=== PATIENT | female | born 1990 | race Caucasian/White ===

== ENCOUNTER 2019-07-02 15:39 | Emergency (ER) | payer SELFPAY ==
[~2019-07-02] VITALS: Ht 175 cm; Wt 90.1 kg
--- NOTE | 2019-07-02 16:35 | NUR ---
PT IS IN FAMILY ROOM UNTIL ROOM 8 IS CLEANED.
--- NOTE | 2019-07-02 16:45 | NUR ---
Assumed care of pt @ this time. Pt amb from family room to room #8. Pt reports suicidal ideation r/t situational crisis. Pt reports to be staying @ the [facility] ([place], [place]). Pt reports to have had mental health evaluation ( Mental Health Screener) @ [facility] on this day @ approx 1100. Pt reports screener (Ambika) reports she has an inpatient bed @ [facility] ([place], [place]) but needed to be medically screened in ED.
--- NOTE | 2019-07-02 16:50 | NUR ---
Pt makes verbal commitment to this RN, while in this ED, to not self harm, or attempt to self harm herself in anyway.
--- NOTE | 2019-07-02 16:51 | ED Psychosocial ---
General Chief Complaint: Psych/Social Disorder Stated Complaint: MENTAL HEALTH ISSUES Nursing Triage Note: STATES SHE HAS BEEN HAVING SUICIDAL THOUGHTS. HAD AN ASSESSMENT DONE THIS AM AND THERE IS A OPEN BED IN [facility] SHE JUST NEEDS MEDICALLY CLEARED. STATES SHE HAS A PLAN BUT NO PLANS TO ACT ON IT AT THIS MOMENT AND WILL NOT DISCUSS THE PLAN. Source: patient Exam Limitations: no limitations (CHRISTINA FABIAN APRN) History of Present Illness Date Seen by Provider: Jul 02, 2019 Time Seen by Provider: 16:48 Initial Comments To ER per private vehicle with reports of worsening depression to the point of now having suicidal thoughts. She has a plan but doesn't want to discuss that. [facility] [place] and had a mental health evaluation done there this morning, was apparently determined that she needed inpatient treatment and that [facility] in [facility] a bed available. She was told to come here for medical clearance. She was recently inpatient at [facility] in [place] about 3 months ago, she was then admitted to addiction treatment Center in [facility] for prescription drug use mostly Adderall and "anything and everything". History of bipolar disorder. She is currently on Rexulti and Cymbalta. Timing/Duration: constant, getting worse Severity: moderate (CHRISTINA FABIAN APRN) Allergies and Home Medications Allergies Coded Allergies: No Known Drug Allergies (Unverified , 07/02/19) Patient Home Medication List Home Medication List Reviewed: Yes (CHRISTINA FABIAN APRN) Review of Systems Constitutional: see HPI EENTM: see HPI Respiratory: no symptoms reported Cardiovascular: no symptoms reported Genitourinary: no symptoms reported Musculoskeletal: no symptoms reported Psychiatric/Neurological: See HPI (CHRISTINA FABIAN APRN) Past Vtwbteq-Hemxpw-Enweep Hx Patient Social History Recent Foreign Travel: No Contact w/Someone Who Travel: No Recent Infectious Disease Expo: No (CHRISTINA FABIAN APRN) Past Medical History : No Last Menstrual Period: Jun 25, 2019 (CHRISTINA FABIAN APRN) Physical Exam Vital Signs - First Documented 07/02/19 16:32 Temp 36.7 Pulse 66 Resp 16 B/P (MAP) 143/88 (106) Pulse Ox 98 O2 Delivery Room Air (VIVIANA HURT MD) Capillary Refill : Less Than 3 Seconds (CHRISTINA FABIAN APRN) Height, Weight, BMI Height: '" Weight: lbs. oz. kg; 29.00 BMI Method: General Appearance: WD/WN, no apparent distress HEENT: PERRL/EOMI, normal ENT inspection Neck: non-tender, full range of motion Respiratory: no respiratory distress, no accessory muscle use Gastrointestinal: normal bowel sounds, non tender, soft Neurologic/Psychiatric: normal mood/affect, oriented x 3 Appearance/Memory: appropriate appearance, appropriate insight, neat Behavior/Eye Contact: cooperative, good eye contact Thoughts/Hallucinations: normal thought pattern, no apparent hallucination; No auditory hallucinations, No delusions, No flight of ideas Skin: normal color, warm/dry (CHRISTINA FABIAN APRN) Progress/Results/Core Measures Results/Orders Lab Results Laboratory Tests Test 07/02/19 17:40 07/02/19 17:45 Range/Units White Blood Count 10.3 4.3-11.0 10^3/uL Red Blood Count 4.73 4.35-5.85 10^6/uL Hemoglobin 14.4 11.5-16.0 G/DL Hematocrit 43 35-52 % Mean Corpuscular Volume 90 80-99 FL Mean Corpuscular Hemoglobin 30 25-34 PG Mean Corpuscular Hemoglobin Concent 34 32-36 G/DL Red Cell Distribution Width 13.4 10.0-14.5 % Platelet Count 246 130-400 10^3/uL Mean Platelet Volume 9.6 7.4-10.4 FL Neutrophils (%) (Auto) 69 42-75 % Lymphocytes (%) (Auto) 23 12-44 % Monocytes (%) (Auto) 7 0-12 % Eosinophils (%) (Auto) 1 0-10 % Basophils (%) (Auto) 0 0-10 % Neutrophils # (Auto) 7.1 1.8-7.8 X 10^3 Lymphocytes # (Auto) 2.3 1.0-4.0 X 10^3 Monocytes # (Auto) 0.7 0.0-1.0 X 10^3 Eosinophils # (Auto) 0.1 0.0-0.3 10^3/uL Basophils # (Auto) 0.0 0.0-0.1 10^3/uL Sodium Level 142 135-145 MMOL/L Potassium Level 4.3 3.6-5.0 MMOL/L Chloride Level 110 H 98-107 MMOL/L Carbon Dioxide Level 22 21-32 MMOL/L Anion Gap 10 5-14 MMOL/L Blood Urea Nitrogen 13 7-18 MG/DL Creatinine 0.83 0.60-1.30 MG/DL Estimat Glomerular Filtration Rate > 60 BUN/Creatinine Ratio 16 Glucose Level 76 70-105 MG/DL Calcium Level 8.6 8.5-10.1 MG/DL Corrected Calcium 8.8 8.5-10.1 MG/DL Total Bilirubin 0.3 0.1-1.0 MG/DL Aspartate Amino Transf (AST/SGOT) 17 5-34 U/L Alanine Aminotransferase (ALT/SGPT) 24 0-55 U/L Alkaline Phosphatase 52 40-136 U/L Total Protein 6.0 L 6.4-8.2 GM/DL Albumin 3.8 3.2-4.5 GM/DL Salicylates Level < 5.0 L 5.0-20.0 MG/DL Acetaminophen Level < 10 L 10-30 UG/ML Serum Alcohol < 10 <10 MG/DL Urine Color YELLOW Urine Clarity CLEAR Urine pH 7 5-9 Urine Specific [place] 1.015 L 1.016-1.022 Urine Protein NEGATIVE NEGATIVE Urine Glucose (UA) NEGATIVE NEGATIVE Urine Ketones NEGATIVE NEGATIVE Urine Nitrite NEGATIVE NEGATIVE Urine Bilirubin NEGATIVE NEGATIVE Urine Urobilinogen 1 NORMAL MG/DL Urine Leukocyte Esterase 1+ H NEGATIVE Urine RBC (Auto) 2+ H NEGATIVE Urine RBC 0-2 /HPF Urine WBC 0-2 /HPF Urine Squamous Epithelial Cells 10-25 H /HPF Urine Crystals NONE /LPF Urine Bacteria FEW H /HPF Urine Casts NONE /LPF Urine Mucus NEGATIVE /LPF Urine Culture Indicated NO (VIVIANA HURT MD) Vital Signs/I&O 07/02/19 16:32 Temp 36.7 Pulse 66 Resp 16 B/P (MAP) 143/88 (106) Pulse Ox 98 O2 Delivery Room Air (VIVIANA HURT MD) Blood Pressure Mean: 106 Progress Progress Note : Progress Note 2300--ASSUMED CARE OF PT. RN HAS INFORMED ME THAT [facility] A MALE BED, AND SHE HAS SENT ALL PT'S INFORMATION, AND HAS RECEIVED CONFIRMATION BACK FROM THEM THAT THEY RECEIVED ALL INFORMATION, AND WILL BE REVIEWING IT SHORTLY. 0015--RN HAS CONTACTED [facility] AND THEY REPORT "THEY NEVER RECEIVED ANYTHING", SO ALL OF PT'S INFORMATION WAS RE-SENT TO THEM. PT HAS BEEN SLEEPING SOUNDLY FOR MOST OF ER STAY. 241--I CALLED [facility], AND SPOKE WITH ZEKE, SHE REPORTS THAT THEY "NEVER RECEIVED ANY INFORMATION ON THE PT". THEIR FAX # of [phone] WAS AGAIN CONFIRMED AND ALL OF PT'S INFORMATION WAS SENT A THIRD TIME. STAFF CALLED THEM A SHORT TIME LATER AND CONFIRMED THAT THEY DID RECEIVE ALL OF PT'S INFORMATION. THEY WILL CALL US BACK WITH ACCEPTING DRBridget 411--[facility] 414--SPOKE WITH MUCK MINER LEE KELLY, EDITING CLERK FOR PSYCH. SHE ACCEPTS PT FOR ADMIT/TRANSFER 514--[facility] WAS CONTACTED FOR SECURE TRANSPORT, HE WILL NOT BE AVAILABLE TO TRANSPORT PT UNTIL 1:00 PM TODAY. HIS BACK UP TRANSPORT PERSON IS NOT AVAILABLE TODAY. HE WILL NOT BE ABLE TO HAVE FEMALE SPRING COVERER. I DISCUSSED ALL OF THE ABOVE WITH THE PT, AND SHE STATES SHE IS COMFORTABLE BEING TRANSPORTED BY MALE, WITHOUT A FEMALE SPRING COVERER. SHE REMAINS CALM AND COOPERATIVE, AND HAS SLEPT FOR ENTIRE ER STAY. (DI PEREZ DO) Progress Note : Progress Note 0900: I did assume care for the patient from Dr. Perez pending transfer. She has been accepted in [place] and we are pending transport which should be here in about 1 AM. She did start feeling anxious again and we did repeat dose of Xanax 0.5 mg by mouth as well as had [facility] group leader support him down and talk with her. She is currently much more comfortable at this time and she is still on board with inpatient treatment and thinks that his best for her. She is appreciative of the care. No new complaints or concerns. Care transferred to Dr. Manzanares pending transfer. (ZARINA KELLY MD) Departure Communication (Admissions) To cover for Mr. Fabian at 1700. Her laboratory was just completed. Her cardiogram and laboratory are normal 1825 she has been informed that through [facility] and arranged beginning we have placed a call to move her head. (VIVIANA HURT MD) Impression Primary Impression: Depression Qualified Codes: F32.9 - Major depressive disorder, single episode, unspecified Additional Impression: Suicidal ideations Disposition: 65 XFER TO PSYCH HOSP/UNIT Condition: Stable Transfer Transfer Reason: Exceeds level of care (VIVIANA HURT MD) Time Spoke to Accepting Phy: 04:15 Transfer Progress Notes ABOVE Transfer Facility: [facility][1] Method of Transfer: [facility], SECURE TRANSPORT (DI PEREZ DO) Departure-Patient Inst. Referrals: [facility] (PCP/Family) Primary Care Physician CHRISTINA FABIAN APRN Jul 02, 2019 16:51 VIVIANA HURT MD Jul 02, 2019 18:22 DI PEREZ DO Jul 03, 2019 01:57 ZARINA KELLY MD Jul 03, 2019 09:21
[2019-07-02] MEDS ORDERED: ALPRAZolam 0.5 MG (XANAX) TAB PO SCH (17:00)
[2019-07-02 17:47] LABS: BASOPHILS % (AUTO) 0 % (0-10); EOSINOPHILS # (AUTO) 0.1 10^3/uL (0.0-0.3); EOSINOPHILS % (AUTO) 1 % (0-10); HEMATOCRIT 43 % (35-52); HEMOGLOBIN 14.4 G/DL (11.5-16.0); LYMPHOCYTES # (AUTO) 2.3 X 10^3 (1.0-4.0); LYMPHOCYTES % (AUTO) 23 % (12-44); MEAN CORPUSCULAR HEMOGLOBIN 30 PG (25-34); MEAN CORPUSCULAR HGB CONC 34 G/DL (32-36); MEAN CORPUSCULAR VOLUME 90 FL (80-99); MEAN PLATELET VOLUME 9.6 FL (7.4-10.4); MONOCYTES # (AUTO) 0.7 X 10^3 (0.0-1.0); MONOCYTES % (AUTO) 7 % (0-12); NEUTROPHILS # (AUTO) 7.1 X 10^3 (1.8-7.8); NEUTROPHILS % (AUTO) 69 % (42-75); PLATELET COUNT 246 10^3/uL (130-400); RED CELL DISTRIBUTION WIDTH 13.4 % (10.0-14.5); WHITE BLOOD COUNT 10.3 10^3/uL (4.3-11.0)
[2019-07-02 17:52] LABS: BILIRUBIN,URINE NEGATIVE (NEGATIVE); CLARITY,URINE CLEAR; COLOR,URINE YELLOW; GLUCOSE, URINE (UA) NEGATIVE (NEGATIVE); KETONES,URINE NEGATIVE (NEGATIVE); LEUKOCYTE ESTERASE ,URINE 1+ (NEGATIVE); NITRITE,URINE NEGATIVE (NEGATIVE); PH,URINE 7 (5-9); PROTEIN,URINE NEGATIVE (NEGATIVE)
[2019-07-02 17:58] LABS: BACTERIA,URINE FEW /HPF; RBC,URINE 0-2 /HPF; WBC,URINE 0-2 /HPF
--- NOTE | 2019-07-02 18:00 | NUR ---
Meal tray (plastic utensils) delivered to pt @ this time.
[2019-07-02 18:08] LABS: ALANINE AMINOTRANSFERASE 24 U/L (0-55); ALBUMIN 3.8 GM/DL (3.2-4.5); ALKALINE PHOSPHATASE 52 U/L (40-136); BILIRUBIN,TOTAL 0.3 MG/DL (0.1-1.0); BUN/CREATININE RATIO 16; CALCIUM 8.6 MG/DL (8.5-10.1); CARBON DIOXIDE 22 MMOL/L (21-32); CHLORIDE 110 MMOL/L (98-107); CREATININE SERUM 0.83 MG/DL (0.60-1.30); GFR ESTIMATED > 60; GLUCOSE 76 MG/DL (70-105); POTASSIUM 4.3 MMOL/L (3.6-5.0); SALICYLATE < 5.0 MG/DL (5.0-20.0); SODIUM 142 MMOL/L (135-145)
[2019-07-02 18:12] LABS: ACETAMINOPHEN < 10 UG/ML (10-30)
--- NOTE | 2019-07-02 18:24 | NUR ---
Contacted [facility] (FREYA Harmon) and was advised to call back in 15 minutes.
--- NOTE | 2019-07-02 18:59 | NUR ---
Contacted [facility] with report from intake nurse, Melissa, that facility is at "provider capacity," and was advised to call back tomorrow.
--- NOTE | 2019-07-02 19:22 | NUR ---
Updated pt on current placement status. Pt voices no questions or concerns @ this time. Will continue to monitor.
--- NOTE | 2019-07-02 21:20 | NUR ---
Contacted [facility], with report from pt placement nurse that inpatient beds are available. Requested pt information to be faxed ([phone]).
--- NOTE | 2019-07-02 21:34 | NUR ---
Pt resting on ED cart. Updated pt on status regarding inpatient placement. Pt voices no quetions, c/o, or concerns @ this time.
--- NOTE | 2019-07-02 22:20 | NUR ---
Report given RUFINA Wagoner to assume care of pt @ this time.
--- NOTE | 2019-07-03 01:38 | NUR ---
VITALS TAKEN. P 62 RR 18 BP 122/75 02 96% RA PAIN 0/10
--- NOTE | 2019-07-03 04:15 | NUR ---
Vitals taken 116/83 P 58 bpm RR 18 96% on room air 36.9 degrees C
[2019-07-03 04:59] LABS: AMPHETAMINE SCREEN, URINE NEGATIVE (NEGATIVE); BARBITURATE SCREEN URINE NEGATIVE (NEGATIVE); BENZODIAZEPINES SCREEN URINE POSITIVE (NEGATIVE); CANNABINOID SCREEN, URINE NEGATIVE (NEGATIVE); COCAINE SCREEN URINE NEGATIVE (NEGATIVE); METHADONE STAT NEGATIVE (NEGATIVE); METHAMPHETAMINE SCREEN URINE S NEGATIVE (NEGATIVE); OPIATE SCREEN URINE NEGATIVE (NEGATIVE); OXYCODONE STAT NEGATIVE (NEGATIVE); PROPOXYPHENE STAT NEGATIVE (NEGATIVE); TRICYCLIC ANTIDEPRESSANTS SCRE NEGATIVE (NEGATIVE)
--- NOTE | 2019-07-03 06:13 | NUR ---
NURSE TO NURSE REPORT CALLED TO RUFINA TORRES. AT [facility]. RECIEVING FACILITY ADVISED THAT PT WOULD NOT HAVE AVAILABLE TRANSPORT TIL AFTER 0800
--- NOTE | 2019-07-03 07:05 | NUR ---
RESTING IN BED WITH EYES CLOSED.
[2019-07-03] MEDS ORDERED: NICOTINE 21 MG (NICODERM) PATCH TD ONE (07:30)
--- NOTE | 2019-07-03 07:35 | NUR ---
PT UP TO THE BATHROOM ET COFFEE GIVEN.
--- NOTE | 2019-07-03 07:40 | NUR ---
PT HAS ASKED TO BE ABLE TO WEAR HER CLOTES. DR KELLY NOTIFIED WHO HAS AGREED TO THIS .
--- NOTE | 2019-07-03 07:45 | NUR ---
BREAKFAST ORDERED FOR PT. PHARMACY NOTIFIED OF NEEDING PATCH.
--- NOTE | 2019-07-03 07:47 | NUR ---
VITALS [id number]/77
--- NOTE | 2019-07-03 08:08 | NUR ---
BREAKFAST GIVEN TO PT.
--- NOTE | 2019-07-03 08:42 | NUR ---
PT CRYING ET SHAKING. STATES SHE GETS THIS WAY BEFORE GOING TO A FACILITY. DR IN TALKING TO HER AT THIS TIME.
[2019-07-03] MEDS ORDERED: ALPRAZolam 0.25 MG (XANAX) TAB PO ONE (08:45)
--- NOTE | 2019-07-03 08:50 | NUR ---
RASHID FROM [facility] HERE TO TALK TO PTBridget
--- NOTE | 2019-07-03 09:29 | NUR ---
RESTING IN BED. STATES SHE IS DOING MUCH BETTER. LISTENING TO MUSIC ON PHONE..
--- NOTE | 2019-07-03 11:19 | NUR ---
PT WANTING TO TAKE HER GABAPENTIN. DR MOONEY NOTIFIED.
[2019-07-03] MEDS ORDERED: GABAPENTIN 600 MG (NEURONTIN) TAB PO ONE (11:30)
--- NOTE | 2019-07-03 12:22 | NUR ---
AFTER BEING TOLD THAT TRANSPORT WOULD BE HERE AT 1230 SHE BECAME ANXIOUS AND ASKED FOR SOMETHING OTHER THEN XAESTHERX. NIHARIKA FRANCOIS NOTIFIED
[2019-07-03] MEDS ORDERED: LORazepam 0.5 MG (ATIVAN) TABLET PO ONE (12:30)
[2019-07-03 12:45] VITALS: BP 130/77
== END 2019-07-03 12:45 ==
LOC: ER 15:42
DX: F32.9 Major depressive disorder, single episode, unspecified (principal); R45.851 Suicidal ideations
CPT/HCPCS: 36415; 80053; 80306; 80320; 80329; 81000; 84703; 85025; 93005

== ENCOUNTER 2019-08-30 19:14 | Emergency (ER) | payer SELFPAY ==
[~2019-08-30] VITALS: Ht 175 cm; Wt 90.1 kg
[2019-08-30 19:40] VITALS: BP 152/108
[2019-08-30] MEDS ORDERED: NS IV 1000 ML 1,000 ML IV ONE (21:31)
[2019-08-30 21:40] LABS: BILIRUBIN,URINE NEGATIVE (NEGATIVE); CLARITY,URINE CLEAR; COLOR,URINE YELLOW; GLUCOSE, URINE (UA) NEGATIVE (NEGATIVE); KETONES,URINE TRACE (NEGATIVE); LEUKOCYTE ESTERASE ,URINE NEGATIVE (NEGATIVE); NITRITE,URINE NEGATIVE (NEGATIVE); PROTEIN,URINE NEGATIVE (NEGATIVE)
[2019-08-30 21:48] LABS: HCG,QUALITATIVE URINE NEGATIVE (NEGATIVE)
--- NOTE | 2019-08-30 21:48 | ED Psychosocial ---
General Chief Complaint: Psych/Social Disorder Stated Complaint: SHAKING/CP/DOUBLE VISION Nursing Triage Note: pt presents to the ed c/o chest palpitations and blurry vision that onset earlier today and reached its worst one hour ago. pt verbalizes an extensive hx of anxiety. states she started using energy drinks again. pt denies thoughts of self harm or harm to others, states symptoms are similar to other episodes of panick attacks she has had in the past. Source: patient Exam Limitations: no limitations History of Present Illness Date Seen by Provider: Aug 30, 2019 Time Seen by Provider: 21:47 Initial Comments 29-year-old female patient presents with complaints of palpitations with blurry vision beginning while at work. Patient does have a history of anxiety and states this feels similar to her usual symptoms. She states she has been seen both times by her primary care provider and is to be scheduled with the desktop operator for further evaluation. She states tests have all been negative. She does report starting to use energy drinks again approximately one month ago. Was taken off of her ADHD meds 4 months ago. States symptoms returned after stopping the ADHD med. She does have counseling 4 days per week at [facility]. Seen in June at [facility] for depression and suicidal ideation with transfer to [facility] in [place], [place]. Also has a history of admission to [facility] approximately 6 months ago. 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 Denies suicidal or homicidal ideation. Allergies and Home Medications Allergies Coded Allergies: No Known Drug Allergies (Unverified , 07/02/19) Patient Home Medication List Home Medication List Reviewed: Yes Review of Systems Constitutional: No chills, No diaphoresis, No dizziness, No fever, No malaise, No weakness EENTM: see HPI, blurred vision (reports symptoms resolved at this time); No hearing loss, No ear pain, No double vision Respiratory: No cough, No short of breath, No stridor, No wheezing Cardiovascular: No chest pain; palpitations (reports palpitations have resolved.); No syncope Gastrointestinal: No abdominal pain, No constipation, No diarrhea, No nausea, No vomiting Genitourinary: no symptoms reported Musculoskeletal: no symptoms reported Skin: no symptoms reported Psychiatric/Neurological: See HPI, Anxiety, Depressed; Denies Headache, Denies Numbness, Denies Paresthesia, Denies Seizure, Denies Tingling, Denies Weakness All Other Systems Reviewed Negative Unless Noted: Yes (Negative excepted noted.) Past Xofqknz-Kkqpds-Yszgqi Hx Past Med/Social Hx: Reviewed Nursing Past Med/Soc Hx Patient Social History Alcohol Use: Past History Alcohol Beverage of Choice: Whiskey Recreational Drug Use: No Drug of Choice: Reports hx adderal use, but has not used in 2 months. Smoking Status: Current Everyday Smoker Type Used: Cigarettes 2nd Hand Smoke Exposure: No Recent Foreign Travel: No Contact w/Someone Who Travel: No Recent Infectious Disease Expo: No Immunizations Up To Date Tetanus Booster (TDap): Less than 5yrs PED Vaccines UTD: Yes Past Medical History Surgeries: Yes (Gastric sleeve, Rt TIB/FIB) Orthopedic Respiratory: No Cardiac: No Neurological: No : No Last Menstrual Period: Aug 16, 2019 Genitourinary: No Gastrointestinal: No Musculoskeletal: No Endocrine: No HEENT: No Psychosocial: Yes Anxiety, Bipolar, Personality Disorder, Depression Blood Disorders: No Family Medical History Reviewed Nursing Family Hx No Pertinent Family Hx Physical Exam Vital Signs - First Documented 08/30/19 19:40 Temp 36.9 Pulse 84 Resp 22 B/P (MAP) 152/108 (123) Pulse Ox 98 O2 Delivery Room Air Capillary Refill : Less Than 3 Seconds Height, Weight, BMI Height: '" Weight: lbs. oz. 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, no motor/sensory deficits, alert, normal mood/affect, oriented x 3 Appearance/Memory: appropriate appearance, appropriate insight, neat, no memory impairment Behavior/Eye Contact: cooperative, good eye contact Thoughts/Hallucinations: normal thought pattern, no apparent hallucination Skin: normal color, warm/dry Progress/Results/Core Measures Results/Orders Lab Results Laboratory Tests Test 08/30/19 20:49 Range/Units Urine Color YELLOW Urine Clarity CLEAR Urine pH 6.0 5-9 Urine Specific [place] >=1.030 1.016-1.022 Urine Protein NEGATIVE NEGATIVE Urine Glucose (UA) NEGATIVE NEGATIVE Urine Ketones TRACE H NEGATIVE Urine Nitrite NEGATIVE NEGATIVE Urine Bilirubin NEGATIVE NEGATIVE Urine Urobilinogen 0.2 < = 1.0 MG/DL Urine Leukocyte Esterase NEGATIVE NEGATIVE Urine RBC (Auto) NEGATIVE NEGATIVE Urine RBC NONE /HPF Urine WBC 2-5 /HPF Urine Squamous Epithelial Cells 5-10 /HPF Urine Crystals NONE /LPF Urine Bacteria FEW H /HPF Urine Casts NONE /LPF Urine Mucus NEGATIVE /LPF Urine Culture Indicated YES Urine Test NEGATIVE NEGATIVE Urine Opiates Screen NEGATIVE NEGATIVE Urine Oxycodone Screen NEGATIVE NEGATIVE Urine Methadone Screen NEGATIVE NEGATIVE Urine Propoxyphene Screen NEGATIVE NEGATIVE Urine Barbiturates Screen NEGATIVE NEGATIVE Ur Tricyclic Antidepressants Screen NEGATIVE NEGATIVE Urine Phencyclidine Screen NEGATIVE NEGATIVE Urine Amphetamines Screen NEGATIVE NEGATIVE Urine Methamphetamines Screen NEGATIVE NEGATIVE Urine Benzodiazepines Screen NEGATIVE NEGATIVE Urine Cocaine Screen NEGATIVE NEGATIVE Urine Cannabinoids Screen NEGATIVE NEGATIVE My Orders Orders - JENA GONZALES Ua Culture If Indicated (08/30/19 21:31) Cbc With Automated Diff (08/30/19 21:31) Comprehensive Metabolic Panel (08/30/19 21:31) Alcohol (08/30/19 21:31) Drug Screen Stat (Urine) (08/30/19 21:31) Acetaminophen (08/30/19 21:31) Salicylate (08/30/19 21:31) Ekg Tracing (08/30/19 21:31) Hcg,Qualitative Urine (08/30/19 21:31) Ed Iv/Invasive Line Start (08/30/19 21:31) Thyroid Analyzer (08/30/19 21:31) Monitor-Rhythm Ecg Trace Only (08/30/19 21:31) Ns Iv 1000 Ml (Sodium Chloride 0.9%) (08/30/19 21:31) Urine Culture (08/30/19 20:49) Vital Signs/I&O 08/30/19 19:40 Temp 36.9 Pulse 84 Resp 22 B/P (MAP) 152/108 (123) Pulse Ox 98 O2 Delivery Room Air Blood Pressure Mean: 123 Initial ECG Impression Date: Aug 30, 2019 Initial ECG Impression Time: 19:42 Initial ECG Rate: 82 Initial ECG Rhythm: Normal Sinus Initial ECG Intervals: Normal Initial ECG Impression: Normal Initial ECG Comparisson: Unchanged Comment EKG reviewed by Dr. Turner Departure Communication (Admissions) Patient refuses blood work, IV, IVF, and chest x-ray. She states symptoms have resolved and she needs to be at work at 1000 tomorrow. she states she only came to the ED tonight because her boss told her she had to have a doctors note to return to work tomorrow. I have all risks, benefits and possible, patient is associated with remaining in the emergency department for testing versus leaving AGAINST MEDICAL ADVICE. Patient verbalizes understanding and states she is only needing a Doctors note she can return to work tomorrow morning. Patient continues to refuse laboratory or diagnostic studies. Patient subsequently left the emergency department AGAINST MEDICAL ADVICE. Dr. Turner notified of patient refusing testing and leaving AMA. Impression Primary Impression: Heart palpitations Additional Impression: Anxiety Disposition: 07 AGAINST MEDICAL ADVICE Condition: Against Medical Advice Departure-Patient Inst. Decision time for Depature: 22:10 Referrals: [facility] (PCP/Family) Primary Care Physician Work/School Note: Work Release Form Date Seen in the Emergency Department: Aug 30, 2019 Return to Work: Aug 31, 2019 Restrictions: No Restrictions JENA GONZALES Aug 30, 2019 21:48
[2019-08-30 21:56] LABS: AMPHETAMINE SCREEN, URINE NEGATIVE (NEGATIVE); BARBITURATE SCREEN URINE NEGATIVE (NEGATIVE); BENZODIAZEPINES SCREEN URINE NEGATIVE (NEGATIVE); CANNABINOID SCREEN, URINE NEGATIVE (NEGATIVE); COCAINE SCREEN URINE NEGATIVE (NEGATIVE); METHADONE STAT NEGATIVE (NEGATIVE); METHAMPHETAMINE SCREEN URINE S NEGATIVE (NEGATIVE); OPIATE SCREEN URINE NEGATIVE (NEGATIVE); OXYCODONE STAT NEGATIVE (NEGATIVE); PROPOXYPHENE STAT NEGATIVE (NEGATIVE); TRICYCLIC ANTIDEPRESSANTS SCRE NEGATIVE (NEGATIVE)
[2019-08-30 22:00] LABS: BACTERIA,URINE FEW /HPF
== END 2019-08-30 22:08 | disposition left against medical advice (07) ==
LOC: EDUNIT# 19:14 → ER 19:15
DX: F41.9 Anxiety disorder, unspecified (principal); F31.9 Bipolar disorder, unspecified; F60.9 Personality disorder, unspecified; F17.210 Nicotine dependence, cigarettes, uncomplicated
CPT/HCPCS: 80306; 81000; 84703; 87088; 93041

== ENCOUNTER 2020-03-10 18:32 | Emergency (ER) | payer SELFPAY ==
[~2020-03-10] VITALS: Ht 175.3 cm; Wt 97.5 kg
[2020-03-10] MEDS ORDERED: NS IV 1000 ML 1,000 ML IV ONE (19:00)
--- NOTE | 2020-03-10 19:07 | ED Psychosocial ---
General Chief Complaint: Psych/Social Disorder Stated Complaint: PSYCH EVAL Nursing Triage Note: PT AMB TO [facility] 8 WITH COMPLAINT OF SUICIDAL IDEATIONS. WANTS INPATIENT TREATMENT Source: patient Exam Limitations: no limitations (JEZ LONGORIA,) History of Present Illness Date Seen by Provider: Mar 10, 2020 Time Seen by Provider: 16:50 Initial Comments Pt to ER due to suicidal ideation. She is actively suicidal and says she would execute her plan if she were to leave. She has a knife at home that she plans to use. She has been depressed for "a while", but her boyfriend said rude things to her and they broke up. She is also unemployed, so her life is "down the toilet". She has services through [facility], [facility], and [facility]. She recently transitioned to care with Melissa at [facility], but has not had many appointments to discuss issues, which is compacting her health. She sees Gail at [facility]. She denies any hallucinations or voices telling her to hurt herself. She has prior mental health stays in [place] and [place]. She does state she was pre viously in , but has been occasionally drinking recently. She also admits to weed, meth, and ecstasy use yesterday (03/09). Associated Symptoms: anxiety, suicidal ideation (JEZ LONGORIA,) Initial Comments Reports increased depression over the last month with exacerbation of suicidal thoughts today after breakup with her significant other. Admits to using alanine yesterday. Has had previous suicide attempts and previous inpatient admissions. Does report that she is a cutter but hasn't done that for about a month and that was to the right upper thigh. Reports taking her meds as directed and has only missed one dose recently. Timing/Duration: this morning, getting worse Severity: moderate (ZARINA KELLY MD) Allergies and Home Medications Allergies Coded Allergies: No Known Drug Allergies (Unverified , 07/02/19) Patient Home Medication List Home Medication List Reviewed: Yes (JEZ LONGORIA,) Home Medication List Reviewed: Yes (ZARINA KELLY MD) Review of Systems Constitutional: no symptoms reported EENTM: no symptoms reported Respiratory: no symptoms reported Cardiovascular: no symptoms reported Gastrointestinal: no symptoms reported Genitourinary: no symptoms reported Musculoskeletal: no symptoms reported Skin: no symptoms reported Psychiatric/Neurological: See HPI, Anxiety (JEZ LONGORIA,) Constitutional: No chills, No fever EENTM: No nose congestion, No throat pain Respiratory: No cough, No short of breath Cardiovascular: No chest pain, No palpitations Gastrointestinal: No diarrhea, No nausea, No vomiting Skin: see HPI Psychiatric/Neurological: Anxiety, Depressed, Emotional Problems (ZARINA KELLY MD) All Other Systems Reviewed Negative Unless Noted: Yes (ZARINA KELLY MD) Past Nlfkwhg-Ccyicf-Lskgop Hx Past Med/Social Hx: Reviewed Nursing Past Med/Soc Hx (ZARINA KELLY MD) Patient Social History Alcohol Use: Occasionally Uses Number of Drinks Today: GG Alcohol Beverage of Choice: Whiskey Recreational Drug Use: Yes Drug of Choice: THC, METH, ECSTACY Smoking Status: Current Everyday Smoker (15 pack-year history) Type Used: Cigarettes 2nd Hand Smoke Exposure: No Recent Foreign Travel: No Contact w/Someone Who Travel: No Recent Infectious Disease Expo: No (JEZ LONGORIA,) Immunizations Up To Date Tetanus Booster (TDap): Less than 5yrs PED Vaccines UTD: Yes (JEZ LONGORIA,) Past Medical History Surgeries: Yes Abdominal (gastric sleeve), Orthopedic (R tib/fib) Respiratory: No Cardiac: Yes Hypertension Neurological: No Genitourinary: No Gastrointestinal: No Musculoskeletal: Yes Fibromyalgia Endocrine: No HEENT: No Psychosocial: Yes Anxiety, PTSD, Bipolar, Personality Disorder, Depression Blood Disorders: No (JEZ LONGORIA,) Family Medical History Reviewed Nursing Family Hx (ZARINA KELLY MD) No Pertinent Family Hx (JEZ LONGORIA,) Physical Exam Vital Signs - First Documented 03/10/20 18:44 Temp 36.7 Pulse 102 Resp 22 B/P (MAP) 176/128 (144) Pulse Ox 100 O2 Delivery Room Air (ZARINA KELLY MD) Capillary Refill : Less Than 3 Seconds (JEZ LONGORIA,) Height, Weight, BMI Height: '" Weight: lbs. oz. kg; 31.00 BMI Method: General Appearance: WD/WN, moderate distress HEENT: PERRL/EOMI Neck: non-tender, full range of motion Respiratory: no respiratory distress, no accessory muscle use Cardiovascular: regular rate, rhythm, no murmur Neurologic/Psychiatric: alert, oriented x 3, depressed affect (tearful during exam) Appearance/Memory: appropriate appearance, appropriate insight Behavior/Eye Contact: cooperative, avoids eye contact Thoughts/Hallucinations: normal thought pattern, no apparent hallucination Skin: normal color, warm/dry (JEZ LONGORIA,) General Appearance: WD/WN, moderate distress HEENT: PERRL/EOMI, pharynx normal Neck: full range of motion, supple Respiratory: lungs clear, normal breath sounds, no respiratory distress Cardiovascular: regular rate, rhythm, no murmur Gastrointestinal: non tender, soft Extremities: normal range of motion, non-tender Neurologic/Psychiatric: alert, oriented x 3 Appearance/Memory: appropriate appearance, appropriate insight Behavior/Eye Contact: cooperative, avoids eye contact Thoughts/Hallucinations: normal thought pattern, no apparent hallucination Skin: normal color, warm/dry (ZARINA KELLY MD) Progress/Results/Core Measures Results/Orders Lab Results Laboratory Tests Test 03/10/20 19:20 03/10/20 19:57 Range/Units White Blood Count 7.6 4.3-11.0 10^3/uL Red Blood Count 5.11 4.35-5.85 10^6/uL Hemoglobin 15.4 11.5-16.0 G/DL Hematocrit 44 35-52 % Mean Corpuscular Volume 87 80-99 FL Mean Corpuscular Hemoglobin 30 25-34 PG Mean Corpuscular Hemoglobin Concent 35 32-36 G/DL Red Cell Distribution Width 13.1 10.0-14.5 % Platelet Count 335 130-400 10^3/uL Mean Platelet Volume 8.5 7.4-10.4 FL Neutrophils (%) (Auto) 59 42-75 % Lymphocytes (%) (Auto) 31 12-44 % Monocytes (%) (Auto) 8 0-12 % Eosinophils (%) (Auto) 2 0-10 % Basophils (%) (Auto) 1 0-10 % Neutrophils # (Auto) 4.5 1.8-7.8 X 10^3 Lymphocytes # (Auto) 2.3 1.0-4.0 X 10^3 Monocytes # (Auto) 0.6 0.0-1.0 X 10^3 Eosinophils # (Auto) 0.1 0.0-0.3 10^3/uL Basophils # (Auto) 0.0 0.0-0.1 10^3/uL Sodium Level 141 135-145 MMOL/L Potassium Level 3.5 L 3.6-5.0 MMOL/L Chloride Level 105 98-107 MMOL/L Carbon Dioxide Level 24 21-32 MMOL/L Anion Gap 12 5-14 MMOL/L Blood Urea Nitrogen 11 7-18 MG/DL Creatinine 0.93 0.60-1.30 MG/DL Estimat Glomerular Filtration Rate > 60 BUN/Creatinine Ratio 12 Glucose Level 92 70-105 MG/DL Calcium Level 9.3 8.5-10.1 MG/DL Corrected Calcium 8.9 8.5-10.1 MG/DL Total Bilirubin 0.4 0.1-1.0 MG/DL Aspartate Amino Transf (AST/SGOT) 22 5-34 U/L Alanine Aminotransferase (ALT/SGPT) 19 0-55 U/L Alkaline Phosphatase 70 40-136 U/L Total Protein 7.8 6.4-8.2 GM/DL Albumin 4.5 3.2-4.5 GM/DL Salicylates Level < 5.0 L 5.0-20.0 MG/DL Acetaminophen Level < 10 L 10-30 UG/ML Serum Alcohol 13 H <10 MG/DL Urine Color YELLOW Urine Clarity SL CLOUDY Urine pH 6.5 5-9 Urine Specific [place] 1.025 H 1.016-1.022 Urine Protein TRACE H NEGATIVE Urine Glucose (UA) NEGATIVE NEGATIVE Urine Ketones NEGATIVE NEGATIVE Urine Nitrite NEGATIVE NEGATIVE Urine Bilirubin NEGATIVE NEGATIVE Urine Urobilinogen 1.0 < = 1.0 MG/DL Urine Leukocyte Esterase TRACE H NEGATIVE Urine RBC (Auto) NEGATIVE NEGATIVE Urine RBC RARE /HPF Urine WBC 2-5 /HPF Urine Squamous Epithelial Cells 25-50 H /HPF Urine Crystals NONE /LPF Urine Bacteria MODERATE H /HPF Urine Casts NONE /LPF Urine Mucus NEGATIVE /LPF Urine Culture Indicated NO Urine Test NEGATIVE NEGATIVE Urine Opiates Screen NEGATIVE NEGATIVE Urine Oxycodone Screen NEGATIVE NEGATIVE Urine Methadone Screen NEGATIVE NEGATIVE Urine Propoxyphene Screen NEGATIVE NEGATIVE Urine Barbiturates Screen NEGATIVE NEGATIVE Ur Tricyclic Antidepressants Screen NEGATIVE NEGATIVE Urine Phencyclidine Screen NEGATIVE NEGATIVE Urine Amphetamines Screen POSITIVE H NEGATIVE Urine Methamphetamines Screen POSITIVE H NEGATIVE Urine Benzodiazepines Screen NEGATIVE NEGATIVE Urine Cocaine Screen NEGATIVE NEGATIVE Urine Cannabinoids Screen POSITIVE H NEGATIVE (ZARINA KELLY MD) My Orders Orders - ZARINA KELLY MD Ua Culture If Indicated (03/10/20:00) Cbc With Automated Diff (03/10/20:00) Comprehensive Metabolic Panel (03/10/20:00) Alcohol (03/10/20:00) Drug Screen Stat (Urine) (03/10/20:) Acetaminophen (03/10/20:00) Salicylate (03/10/20:00) Ekg Tracing (03/10/20:00) Hcg,Qualitative Urine (03/10/20:00) Ed Iv/Invasive Line Start (03/10/20:00) Monitor-Rhythm Ecg Trace Only (03/10/20:00) Bh Status Checks/Observation Q15M (03/10/20:00) Ed Iv/Invasive Line Start (03/10/20:00) Ns Iv 1000 Ml (Sodium Chloride 0.9%) (03/10/20:00) General/Regular (03/10/20 Dinner) (ZARINA KELLY MD) Vital Signs/I&O 03/10/20 03/10/20 18:44 20:45 Temp 36.7 36.7 Pulse 102 81 Resp 22 17 B/P (MAP) 176/128 (144) 131/89 (103) Pulse Ox 100 100 O2 Delivery Room Air Room Air (ZARINA KLELY MD) Blood Pressure Mean: 144 Progress Progress Note : Progress Note I have seen and evaluated the patient and agree with above except as indicated. I have directed by care. Patient is here with suicidal ideation and requesting inpatient admission. She states this is voluntary and wants to go. She states her counselors have been encouraging her for inpatient admission recently but she was hasn't. She now knows it's what she needs and is willing and wanting to go. Labs, EKG, UA, UCG and meal ordered. Monitor patient. 2030: Patient is medically cleared for inpatient psychiatric admission. We will initiate contact to find inpatient bed. Blood pressure currently 131/80 with pulse of 80. 2147: I discussed the case with Dr. Fisher at [email or web address] in [place], [place] and he has accepted the patient graciously to their services. We are waiting on bed assignment. Patient informed and agrees. Pending transport. (ZARINA KELLY MD) Initial ECG Impression Date: Mar 10, 2020 Initial ECG Impression Time: 19:09 Initial ECG Rate: 82 Initial ECG Rhythm: Normal Sinus Initial ECG Impression: Normal Initial ECG Comparisson: Unchanged Comment Sinus rhythm with normal axis. No evidence of ST elevation RI. Unchanged from previous. Interpreted by me. (ZARINA KELLY MD) Departure Impression Primary Impression: Suicidal ideation Additional Impression: Depression Qualified Codes: F33.2 - Major depressive disorder, recurrent severe without psychotic features Disposition: XFER SHT-TRM HOSP Condition: Stable Transfer Transfer Reason: Exceeds level of care Time Spoke to Accepting Phy: 21:47 Transfer Facility: [place], [place], Dr. Fisher accepting Method of Transfer: transport (ZARINA KELLY MD) Departure-Patient Inst. Referrals: [facility] (PCP/Family) Primary Care Physician JEZ LONGORIA, Mar 10, 2020 19:07 ZARINA KELLY MD Mar 10, 2020 19:42
[2020-03-10 19:28] LABS: BASOPHILS % (AUTO) 1 % (0-10); EOSINOPHILS # (AUTO) 0.1 10^3/uL (0.0-0.3); EOSINOPHILS % (AUTO) 2 % (0-10); HEMATOCRIT 44 % (35-52); HEMOGLOBIN 15.4 G/DL (11.5-16.0); LYMPHOCYTES # (AUTO) 2.3 X 10^3 (1.0-4.0); LYMPHOCYTES % (AUTO) 31 % (12-44); MEAN CORPUSCULAR HEMOGLOBIN 30 PG (25-34); MEAN CORPUSCULAR HGB CONC 35 G/DL (32-36); MEAN CORPUSCULAR VOLUME 87 FL (80-99); MEAN PLATELET VOLUME 8.5 FL (7.4-10.4); MONOCYTES # (AUTO) 0.6 X 10^3 (0.0-1.0); MONOCYTES % (AUTO) 8 % (0-12); NEUTROPHILS # (AUTO) 4.5 X 10^3 (1.8-7.8); NEUTROPHILS % (AUTO) 59 % (42-75); PLATELET COUNT 335 10^3/uL (130-400); RED CELL DISTRIBUTION WIDTH 13.1 % (10.0-14.5); WHITE BLOOD COUNT 7.6 10^3/uL (4.3-11.0)
[2020-03-10 19:49] LABS: ALANINE AMINOTRANSFERASE 19 U/L (0-55); ALBUMIN 4.5 GM/DL (3.2-4.5); ALKALINE PHOSPHATASE 70 U/L (40-136); BILIRUBIN,TOTAL 0.4 MG/DL (0.1-1.0); BUN/CREATININE RATIO 12; CALCIUM 9.3 MG/DL (8.5-10.1); CARBON DIOXIDE 24 MMOL/L (21-32); CHLORIDE 105 MMOL/L (98-107); CREATININE SERUM 0.93 MG/DL (0.60-1.30); GFR ESTIMATED > 60; GLUCOSE 92 MG/DL (70-105); POTASSIUM 3.5 MMOL/L (3.6-5.0); SALICYLATE < 5.0 MG/DL (5.0-20.0); SODIUM 141 MMOL/L (135-145); TOTAL PROTEIN 7.8 GM/DL (6.4-8.2)
[2020-03-10 20:02] LABS: BILIRUBIN,URINE NEGATIVE (NEGATIVE); CLARITY,URINE SL CLOUDY; COLOR,URINE YELLOW; GLUCOSE, URINE (UA) NEGATIVE (NEGATIVE); KETONES,URINE NEGATIVE (NEGATIVE); LEUKOCYTE ESTERASE ,URINE TRACE (NEGATIVE); NITRITE,URINE NEGATIVE (NEGATIVE); PH,URINE 6.5 (5-9); PROTEIN,URINE TRACE (NEGATIVE)
[2020-03-10 20:05] LABS: HCG,QUALITATIVE URINE NEGATIVE (NEGATIVE)
[2020-03-10 20:08] LABS: BACTERIA,URINE MODERATE /HPF; RBC,URINE RARE /HPF; SQUAMOUS EPITHELIAL CELL,UR 25-50 /HPF
[2020-03-10 20:13] LABS: AMPHETAMINE SCREEN, URINE POSITIVE (NEGATIVE); BARBITURATE SCREEN URINE NEGATIVE (NEGATIVE); BENZODIAZEPINES SCREEN URINE NEGATIVE (NEGATIVE); CANNABINOID SCREEN, URINE POSITIVE (NEGATIVE); COCAINE SCREEN URINE NEGATIVE (NEGATIVE); METHADONE STAT NEGATIVE (NEGATIVE); METHAMPHETAMINE SCREEN URINE S POSITIVE (NEGATIVE); OPIATE SCREEN URINE NEGATIVE (NEGATIVE); OXYCODONE STAT NEGATIVE (NEGATIVE); PROPOXYPHENE STAT NEGATIVE (NEGATIVE); TRICYCLIC ANTIDEPRESSANTS SCRE NEGATIVE (NEGATIVE)
[2020-03-10 20:22] LABS: ACETAMINOPHEN < 10 UG/ML (10-30)
[2020-03-10 20:45] VITALS: BP 131/89
[2020-03-10 22:06] VITALS: BP 131/89
== END 2020-03-10 22:09 ==
LOC: EDUNIT# 18:32 → ER 18:33
DX: R45.851 Suicidal ideations (principal); F31.9 Bipolar disorder, unspecified; F41.9 Anxiety disorder, unspecified; F43.10 Post-traumatic stress disorder, unspecified; F12.90 Cannabis use, unspecified, uncomplicated; F15.90 Other stimulant use, unspecified, uncomplicated; F17.210 Nicotine dependence, cigarettes, uncomplicated; I10 Essential (primary) hypertension; M79.7 Fibromyalgia
CPT/HCPCS: 80053; 80306; 81000; 84703; 85025; 93005; 99285; G0480 ×3; 36415; 80320; 80329

== ENCOUNTER 2020-06-19 13:19 | Emergency (ER) | payer SELFPAY ==
[~2020-06-19] VITALS: Ht 175.2 cm; Wt 97.5 kg
--- NOTE | 2020-06-19 14:13 | ED Upper Extremity ---
General Chief Complaint: Upper Extremity Stated Complaint: L ARM SWELLING Source: patient Exam Limitations: no limitations History of Present Illness Date Seen by Provider: Jun 19, 2020 Time Seen by Provider: 14:12 Initial Comments redness swelling and tenderness to the left antecubital fossa after injecting methamphetamine 3-4 days ago. No fevers or chills. She also has some pain between her shoulder blades which she has had for a while, had an injection but no improvement. She would like a numbing patch prescribed. Onset: just prior to arrival Severity: moderate Pain/Injury Location: left elbow Modifying Factors: Worse With Movement Allergies and Home Medications Allergies Coded Allergies: No Known Drug Allergies (Unverified , 07/02/19) Patient Home Medication List Home Medication List Reviewed: Yes Review of Systems Constitutional: see HPI EENTM: see HPI Respiratory: no symptoms reported Cardiovascular: no symptoms reported Genitourinary: no symptoms reported Musculoskeletal: no symptoms reported Skin: see HPI Psychiatric/Neurological: No Symptoms Reported Past Rrykela-Ytgzmc-Tdlnbu Hx Patient Social History Alcohol Use: Denies Use Number of Drinks Today: GG Alcohol Beverage of Choice: Whiskey Recreational Drug Use: Yes Drug of Choice: THC, METH, ECSTACY, "universal drug use" Smoking Status: Current Everyday Smoker Type Used: Cigarettes 2nd Hand Smoke Exposure: No Recent Foreign Travel: No Contact w/Someone Who Travel: No Immunizations Up To Date Tetanus Booster (TDap): Less than 5yrs PED Vaccines UTD: Yes Past Medical History Surgeries: Yes Abdominal, Orthopedic Respiratory: No Cardiac: Yes Hypertension Neurological: No Genitourinary: No Gastrointestinal: Yes Gastroesophageal Reflux Musculoskeletal: Yes Fibromyalgia Endocrine: No HEENT: No Psychosocial: Yes Anxiety, PTSD, Bipolar, Personality Disorder, Depression Blood Disorders: No Family Medical History No Pertinent Family Hx Physical Exam Vital Signs Vital Signs - First Documented 06/19/20 14:26 Temp 36.9 Pulse 104 Resp 20 B/P (MAP) 162/104 (123) Pulse Ox 100 O2 Delivery Room Air Capillary Refill : Height, Weight, BMI Height: '" Weight: lbs. oz. kg; 31.00 BMI Method: General Appearance: WD/WN, no apparent distress HEENT: PERRL/EOMI, normal ENT inspection Respiratory: no respiratory distress, no accessory muscle use Shoulder: normal inspection, non-tender Elbow/Forearm: swelling (fluctuant erythematous half-dollar sized area to the superior aspect of the antecubital fossa on the left. This was anesthetized with 1 mL of 2% lidocaine with epinephrine. Small incision made with an 11 blade scalpel, culture collected and sent to lab, small amount of serous fluid expressed.) Wrist: Yes normal inspection, Yes non-tender Hand: normal inspection, non-tender Neurologic/Psychiatric: alert, normal mood/affect, oriented x 3 Skin: normal color, warm/dry Progress/Results/Core Measures Results/Orders My Orders Orders - CHRISTINA MAXWELL APRN Ceftriaxone For Iv Use (Rocephin For I (06/19/20 14:45) Hydrocodone/Apap 5/325 Tablet (Lortab 5 (06/19/20 14:45) Wound Culture (06/19/20 14:32) Vital Signs/I&O 06/19/20 14:26 Temp 36.9 Pulse 104 Resp 20 B/P (MAP) 162/104 (123) Pulse Ox 100 O2 Delivery Room Air Departure Impression Primary Impression: Extravasation injury Additional Impression: Back pain Disposition: 01 HOME, SELF-CARE Condition: Stable Departure-Patient Inst. Decision time for Depature: 14:36 Referrals: [facility] (PCP/Family) Primary Care Physician Patient Instructions: ABSCESS, Exercises for Upper Back Pain Add. Discharge Instructions: Change the dressing daily and as needed. Take antibiotics as directed. Warm compresses to the area. Return to ER for any worsening. All discharge instructions reviewed with patient and/or family. Voiced understanding. Scripts Lidocaine (Lidocaine Pain Relief) 1 Each Adh..patch 1 EACH TP DAILY PRN for PAIN-MILD (1-4), #10 PATCH Prov: CHRISTINA MAXWELL APRN 06/19/20 Cephalexin (Keflex) 500 Mg Capsule 500 MG PO QID, #20 CAP Prov: CHRISTINA MAXWELL APRN 06/19/20 CHRISTINA MAXWELL APRN Jun 19, 2020 14:13
[2020-06-19] MEDS ORDERED: LIDOCAINE 1% INJ 20 ML 20 ML VIAL ONE (14:38)
[2020-06-19] MEDS ORDERED: LIDO1ADH66 TP (14:38)
[2020-06-19] MEDS ORDERED: HYDR-3870 PO (14:38)
[2020-06-19] MEDS ORDERED: CEPH-507 PO (14:38)
[2020-06-19] MEDS ORDERED: cefTRIAXone FOR IV USE 1,000 MG in WATER (STERILE) FOR INJECTION 10 ML IV ONE (14:45)
[2020-06-19] MEDS ORDERED: HYDROcodone/APAP 5 MG/325 MG (LORTAB) TAB PO ONE (14:45)
[2020-06-19 15:03] VITALS: BP 145/83
== END 2020-06-19 15:04 | disposition home or self-care (01) ==
LOC: EDUNIT# 13:19 → ER 13:21
DX: T80.818A Extravasation of other vesicant agent, initial encounter (principal); M54.9 Dorsalgia, unspecified; I10 Essential (primary) hypertension; F17.210 Nicotine dependence, cigarettes, uncomplicated
CPT/HCPCS: 87070; 87205; 99284